=== PATIENT | female | born 1970 | race Caucasian/White ===

== ENCOUNTER → 2017-05-03 | Day surgery (SDC) | payer OTHER ==
[~2017-05-03] MED LIST: HYDR-3133 PO; LACTATED RINGER'S 1000 ML INJ 1,000 ML ONE; MEDR4PAK PO; PROPOFOL 500 MG/50 ML BTL IV ONE
== END | disposition home or self-care (01) ==
LOC: ESDC 08:36
PROVIDERS: ATTEND Internal Medicine Gastroenterology
DX: R12 Heartburn (principal); K20.9 Esophagitis, unspecified; K31.9 Disease of stomach and duodenum, unspecified; R10.9 Unspecified abdominal pain; K57.90 Diverticulosis of intestine, part unspecified, without perforation or abscess without bleeding; K64.8 Other hemorrhoids
CPT/HCPCS: 00813; 43239; 45378; 88305; J3010; J7120; 88312

== ENCOUNTER → 2017-06-03 | Outpatient (CLI) | payer OTHER ==
[~2017-06-03] MED LIST changes: +ALBUAER3 INH; -LACTATED RINGER'S 1000 ML INJ 1,000 ML ONE; +PANT40TA3 PO; -PROPOFOL 500 MG/50 ML BTL IV ONE; +TRAM50TA PO
[2017-06-03 12:32] LABS: AUTOMATED NEUTROPHIL # 4.3 TH/MM3 (1.8-7.7); BASOPHIL % 0.1 % (0.0-2.0); EOSINOPHIL % 0.2 % (0.0-4.0); HEMOGLOBIN 10.7 GM/DL (11.6-15.3); LYMPH % 21.5 % (9.0-44.0); LYMPHOCYTE # 1.3 TH/MM3 (1.0-4.8); MEAN CELL VOLUME 77.9 FL (80.0-100.0); MEAN CORPUSCULAR HEMOGLOBIN 25.2 PG (27.0-34.0); MEAN CORPUSCULAR HGB CONC 32.4 % (32.0-36.0); MEAN PLATELET VOLUME 6.5 FL (7.0-11.0); MONO % 8.4 % (0.0-8.0); MONOCYTE # 0.5 TH/MM3 (0-0.9); NEUT % 69.8 % (16.0-70.0); PLATELET COUNT 365 TH/MM3 (150-450); RED BLOOD COUNT 4.24 MIL/MM3 (4.00-5.30); RED CELL DISTRIBUTION WIDTH 16.3 % (11.6-17.2); WHITE BLOOD COUNT 6.2 TH/MM3 (4.0-11.0)
[2017-06-03 12:42] LABS: INTERNATIONAL NORMALIZED RATIO 0.9 RATIO; PROTHROMBIN TIME - PATIENT 9.5 SEC (9.8-11.6)
[2017-06-03 12:56] LABS: ALBUMIN 3.6 GM/DL (3.4-5.0); AST (GOT) 40 U/L (15-37); BICARBONATE 23.4 MEQ/L (21.0-32.0); BLOOD UREA NITROGEN 9 MG/DL (7-18); CALCIUM 8.7 MG/DL (8.5-10.1); CHLORIDE 105 MEQ/L (98-107); CREATININE 0.82 MG/DL (0.50-1.00); GLOMERULAR FILTRATION RATE 75 ML/MIN (>89); GLUCOSE,FASTING 106 MG/DL (74-99); SODIUM (NA) 137 MEQ/L (136-145)
[2017-06-03 13:01] LABS: ALKALINE PHOSPHATASE 92 U/L (45-117); ALT (GPT) 44 U/L (10-53); TOTAL BILIRUBIN ADULT 0.3 MG/DL (0.2-1.0); TOTAL PROTEIN 7.9 GM/DL (6.4-8.2)
--- NOTE | 2017-06-04 11:16 | EKG ---
Date Performed: 06/03/2017 Time Performed: 11:58:40 PTAGE: 47 years EKG: Sinus rhythm LOW QRS VOLTAGE IN PRECORDIAL LEADS POSSIBLE ANTERIOR MYOCARDIAL INFARCTION, PROBABLY OLD BORDERLINE ECG NO PREVIOUS TRACING DOCTOR: Kwadwo Feliz Interpretating Date/Time 06/04/2017 11:12:39
== END ==
LOC: CPRE 11:42
PROVIDERS: ATTEND Obstetrics & Gynecology Gynecologic Oncology
DX: Z01.812 Encounter for preprocedural laboratory examination (principal); Z01.810 Encounter for preprocedural cardiovascular examination; C53.9 Malignant neoplasm of cervix uteri, unspecified; R94.31 Abnormal electrocardiogram [ECG] [EKG]
CPT/HCPCS: 36415; 80053; 84703; 85025; 85610; 85730; 93005

== ENCOUNTER → 2017-06-10 | Day surgery (SDC) | payer OTHER ==
[~2017-06-10] VITALS: Ht 157.5 cm; Wt 115.8 kg
[~2017-06-10] MED LIST changes: +CHLORHEXIDINE GLUCONATE 2 % 1 PACK (2 CLOTHS) TOPICAL PRN; +DEXAMETHASONE SOD PHOS 4 MG/ML VIAL IV ONE; +DO NOT ADM ANY ANTICOAGULANT DRUGS PRN; +FERRIC SUBSULFATE 8 ML TOP SOLN TOPICAL ONE; -HYDR-3133 PO; +KETOROLAC TROMETHAMINE 30 MG/ML (IVP) VIAL IV PUSH PRN; +LACTATED RINGER'S 1000 ML IV PRN; +LIDOCAINE 1%/EPINEPHrine 1:100,000 SOLN 30 ML VIAL ONE; +LIDOCAINE HCL 1% PF 5 ML SYRINGE OTHER ONE; -MEDR4PAK PO; +METOPROLOL TARTRATE 25 MG TAB PO PRN; +MIDAZOLAM HCL 2 MG/2 ML VIAL ONE; +ONDANSETRON HCL 4 MG/2 ML VIAL IV ONE; +POVIDONE IODINE 5% (ANTISEPSIS KIT) 4 APPLICATIONS EACH NARE PRN; +PROPOFOL 200 MG/20 ML AMP IV ONE; +ROCURONIUM INJ 50 MG/5 ML SYRINGE IV PUSH ONE; +SODIUM CHLORID 0.9% 500 ML IV PRN; +SUGAMMADEX SODIUM 200 MG/2 ML VIAL IV PUSH ONE
--- NOTE | 2017-06-10 13:27 | MP ---
cc: Kimber Frey MD,Mariely Roque MD, Ryan DATE OF OPERATION: 06/10/2017 DATE OF PROCEDURE: 06/10/2017 PREOPERATIVE DIAGNOSIS: Squamous cell carcinoma of the cervix. 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 PROCEDURE PERFORMED: Examination under anesthesia, upper vaginal biopsies, cystoscopy with bladder biopsy. ESTIMATED BLOOD LOSS: 40 mL. SURGEON: Kimber Frey MD CERAMICS TEST ENGINEER: Adam parts room assistant. ANESTHESIA: Laryngeal mask anesthesia. INDICATIONS FOR PROCEDURE: This is a 47-year-old female who has had bleeding and pain for at least a year's duration, possibly longer and recently sought evaluation that included a GI workup, upper and lower and a DRIVER GUARD workup that showed a mass on the cervix. The mass on the cervix was biopsied. Biopsy confirmed an invasive squamous cell carcinoma. She was seen in consultation in our office, where findings were reviewed. We recommended steps to obtain additional information. We recommended a PET CT scan as well as an examination under anesthesia, possible additional biopsies and cystoscopy. She is seen again in the preoperative holding area. She is accompanied by a close friend, who is a registered nurse. We reviewed again the findings, the recommendations and the plan of care. She expressed good understanding and agreed to move forward. FINDINGS: On exam under anesthesia, there is no appreciably enlarged inguinal lymph nodes. External genitalia without mass or lesion. Distal vagina is normal. The cervix, however, is abnormal. It is replaced with tumor. There is an obvious exophytic tumor mass approximately 2-3 cm from the 12 o'clock to 3 o'clock position on the left. There was also another tumor on the lateral most edge of the cervix, most noted there at the 7 o'clock position, but there is firm infiltrative tumor that essentially replacing the entire cervix. The tumor extends to the upper vagina, essentially circumferentially around the cervix. On rectovaginal exam, there is obvious parametrial infiltration bilaterally. The cervix was retracted toward the upper vagina bilaterally due to the upper vaginal and parametrial disease and i following carefully with palpation to the pelvic sidewall, the parametrial tumor thins out, but I cannot detect an obvious tumor free space between the tumor and the pelvic sidewalls on either side, such that I think that there is early sidewall infiltration of tumor. She has had a recent GI workup, so proctoscopy was not performed. Cystoscopy done today showed the bladder mucosa appeared normal, but there was some very fine irritation and/or bullous edema in the trigone. It did not appear neoplastic. It looked to be more like chronic inflammation or irritation. Nevertheless, a biopsy was taken from the center of this hardware supplies sales representative to ensure there was no neoplastic change. The ureteral ostia were well visualized bilaterally. There was good efflux of urine bilaterally. Overall, these findings are consistent with a clinical stage IIIB invasive squamous cell carcinoma of the cervix. Biopsy frozen section from the right upper vagina confirmed invasive squamous cell carcinoma consistent with outside biopsy as well as our clinical findings. However, it is noted that on 06/02/2017, she had a PET CT scan as recommended and this shows PET avid adenopathy in the iliac regions bilaterally, as well as the paraaortic region so this will be taken into account and whereas she is a clinical stage IIIB, there is radiographic evidence suggestive of metastatic disease to the pelvic and paraaortic lymph nodes. DESCRIPTION OF PROCEDURE: She was taken to the operating room and placed in dorsal lithotomy position and after laryngeal mask anesthesia was administered, timeout was undertaken. She was identified by site recognition and hospital ID bracelet and the proposed procedure was reviewed and confirmed. She was carefully positioned in stirrups. Exam under anesthesia was performed with findings as described above. She was prepped and draped in sterile fashion. Speculum exam was performed. Biopsies were taken from the right upper vagina and left upper vagina and a Ray-Chadd sponge was placed in the vagina for hemostasis. Cystoscopy was performed using a 70-degree scope with findings as described above. A biopsy of the trigone of the bladder was obtained with a flexible biopsy instrument, rendered hemostatic with Bugbee cautery. The bladder was drained. Intraoperative consultation with Dr. Gagan Akins, radiation oncology. He was available at this time and he came into the operating room. The Ray-Chadd sponge that was in the vagina was removed. He performed an exam under anesthesia and concurred with clinical findings and clinical staging as described above. There were no remaining foreign objects in the vagina. Topical Monsel's solution was used to render the biopsy sites initially hemostatic and then Surgicel SNoW was placed with a pressure dressing and a hemostatic agent across the cervix and the biopsy sites as well. Reobservation confirmed that all sites were hemostatic. Preliminary and final counts were correct. She was returned to dorsal supine position and was pending reversal of anesthesia when I left the operating room to precede her to the postanesthesia care unit. MD BHARATI Ferguson/NORM , 12:50 PM , 01:26 PM
[2017-06-10 14:05] VITALS: BP 121/73; PULSE 102; RESP 20; TEMP 98.5; O2SAT 98
== END | disposition home or self-care (01) ==
LOC: HSDC 08:04
PROVIDERS: ATTEND Obstetrics & Gynecology Gynecologic Oncology
DX: C79.82 Secondary malignant neoplasm of genital organs (principal); C53.9 Malignant neoplasm of cervix uteri, unspecified; N30.90 Cystitis, unspecified without hematuria; I10 Essential (primary) hypertension; J45.909 Unspecified asthma, uncomplicated
CPT/HCPCS: 00940; 52204; 57100; 86850; 86900; 86901; 88305; 88307; 88331; J1100; J2250; J2405; J3010; J7120

== ENCOUNTER 2017-06-18 07:14 | Day surgery (SDC) | payer OTHER ==
[~2017-06-18] VITALS: Ht 157.5 cm; Wt 113.6 kg
[2017-06-18] VITALS (7 sets, daily range): BP systolic 116–129; BP diastolic 69–76; PULSE 76–89; RESP 16–18; TEMP 97.3–98; O2SAT 98–99
[~2017-06-18 07:14] MED LIST changes: -CHLORHEXIDINE GLUCONATE 2 % 1 PACK (2 CLOTHS) TOPICAL PRN; -DEXAMETHASONE SOD PHOS 4 MG/ML VIAL IV ONE; -DO NOT ADM ANY ANTICOAGULANT DRUGS PRN; -FERRIC SUBSULFATE 8 ML TOP SOLN TOPICAL ONE; -KETOROLAC TROMETHAMINE 30 MG/ML (IVP) VIAL IV PUSH PRN; -LACTATED RINGER'S 1000 ML IV PRN; -LIDOCAINE 1%/EPINEPHrine 1:100,000 SOLN 30 ML VIAL ONE; -LIDOCAINE HCL 1% PF 5 ML SYRINGE OTHER ONE; -METOPROLOL TARTRATE 25 MG TAB PO PRN; -MIDAZOLAM HCL 2 MG/2 ML VIAL ONE; -ONDANSETRON HCL 4 MG/2 ML VIAL IV ONE; -POVIDONE IODINE 5% (ANTISEPSIS KIT) 4 APPLICATIONS EACH NARE PRN; -PROPOFOL 200 MG/20 ML AMP IV ONE; -ROCURONIUM INJ 50 MG/5 ML SYRINGE IV PUSH ONE; -SODIUM CHLORID 0.9% 500 ML IV PRN; -SUGAMMADEX SODIUM 200 MG/2 ML VIAL IV PUSH ONE
[2017-06-18] MEDS ORDERED: POVIDONE IODINE 5% (ANTISEPSIS KIT) 4 APPLICATIONS EACH NARE SCH (08:00)
[2017-06-18] MEDS ORDERED: SODIUM CHLORIDE 0.9% 1000 ML IV SCH (08:00)
[2017-06-18] MEDS ORDERED: CHLORHEXIDINE GLUCONATE 2 % 1 PACK (2 CLOTHS) TOPICAL SCH (08:00)
[2017-06-18] MEDS ORDERED: VANCOMYCIN 1000 MG/NS 250 ML - implanted port/tunneled catheter IV SCH ×2 (08:00)
[2017-06-18] MEDS ORDERED: ceFAZolin 2 GM PREMIX 50 ML - implanted port/tunneled catheter insertion IV SCH (08:00)
[2017-06-18 08:20] LABS: INTERNATIONAL NORMALIZED RATIO 0.9 RATIO; PROTHROMBIN TIME - PATIENT 9.5 SEC (9.8-11.6)
[2017-06-18 08:21] LABS: AUTOMATED NEUTROPHIL # 3.1 TH/MM3 (1.8-7.7); BASOPHIL % 0.1 % (0.0-2.0); EOSINOPHIL % 0.2 % (0.0-4.0); HEMATOCRIT 32.7 % (35.0-46.0); HEMOGLOBIN 10.6 GM/DL (11.6-15.3); LYMPH % 23.4 % (9.0-44.0); LYMPHOCYTE # 1.1 TH/MM3 (1.0-4.8); MEAN CELL VOLUME 76.5 FL (80.0-100.0); MEAN CORPUSCULAR HEMOGLOBIN 24.9 PG (27.0-34.0); MEAN CORPUSCULAR HGB CONC 32.5 % (32.0-36.0); MEAN PLATELET VOLUME 6.4 FL (7.0-11.0); MONO % 9.4 % (0.0-8.0); MONOCYTE # 0.4 TH/MM3 (0-0.9); NEUT % 66.9 % (16.0-70.0); PLATELET COUNT 285 TH/MM3 (150-450); RED BLOOD COUNT 4.27 MIL/MM3 (4.00-5.30); RED CELL DISTRIBUTION WIDTH 16.5 % (11.6-17.2); WHITE BLOOD COUNT 4.6 TH/MM3 (4.0-11.0)
[2017-06-18] MEDS ORDERED: MIDAZOLAM HCL 5 MG/5 ML VIAL ONE (09:17)
[2017-06-18] MEDS ORDERED: fentaNYL CITRATE 250 MCG/5 ML AMP ONE (09:17)
[2017-06-18] MEDS ORDERED: LIDOCAINE 1%/EPINEPHrine 1:100,000 SOLN 30 ML VIAL ONE (09:25)
[2017-06-18] MEDS ORDERED: MIDAZOLAM HCL 2 MG/2 ML VIAL ONE (10:31)
[2017-06-18] MEDS ORDERED: SODIUM CHLORIDE 0.9% FLUSH 10 ML FLUSH IVF PRN (11:00)
--- NOTE | 2017-06-18 11:01 | PD.RAD ---
Post Procedure Progress Note Pre Procedure Diagnosis: (1) Cervical cancer Post Procedure Diagnosis: (1) Cervical cancer Procedure Date: Jun 18, 2017 Supervising Radiologist: Felipe De Dios Proceduralist/Assist: Lizabeth Lester, RT(R), Rodney Hall, RT(R) Anesthesia: Local, Analgesia, Conscious Sedation Plan of Activity Patient to Unit: ROPU Patient Condition: Good See PACS Report for procedural detail/treatment Central Venous Access Device Procedure 1 Right Internal Jugular Infusaport Placement single lumen Romansh: 8 Findings: B/C of body habitus, port placed medial to reduce amt of overlying soft tissue. Port secured to chest wall with 2, 2-0 Prolene sutures. Felipe De Dios MD Jun 18, 2017 11:01
[2017-06-18] MEDS ORDERED: oxyCODONE/ACETAMINOPHEN 5 MG/325 MG TAB PO ONE (11:45)
--- NOTE | 2017-06-18 11:45 | RADRPT ---
EXAM DATE/TIME: 06/18/2017 10:45 [facility] COMPARISON: No previous studies available for comparison. INDICATIONS : Patient presents with cervical cancer in need of port placement for treatment. MEDICAL HISTORY : Asthma Diverticulosis Diverticulitis Pneumonia Anemia Ovarian cysts SURGICAL HISTORY : Cholecystectomy Tubal ligation ENCOUNTER: Initial ACUITY: 1 month PAIN SCORE: 0/10 LOCATION: N/A FLUORO TIME: 0.67 minutes IMAGE SERIES: 1 SEDATION TIME: 60 minutes ACCESS: Right internal jugular vein SEDATION: 1.) 6 mg midazolam (Versed) IV 2.) 300 mcg fentanyl (Sublimaze) IV Prophylactic antibiotics were administered with appropriate pre-procedure timing. Vancomycin within 2 hours of procedure, Ancef (or alternative) within 1 hour of procedure. DEVICE: 1. 8 [place] single lumen BioFlo Port PROCEDURE : 1. Continuous pulse oximetry and EKG monitoring. 2. Intravenous conscious sedation. 3. Ultrasound guidance for venous access. 4. Fluoroscopic guided implantable central venous port placement. The patient was placed supine. The neck was prepped in sterile fashion. Full sterile technique was u sed, including cap, mask, sterile gloves and gown, and a large sterile sheet. Hand hygiene and 2% ch lorhexidine Betadine was utilized per protocol for cutaneous antisepsis with appropriate dry time for site. Sterile gel and sterile probe cover were utilized for ultrasound guidance. The skin and sub cutaneous tissues were infiltrated with local anesthetic solution. Under direct ultrasound guidance, central venous access was accomplished in the targeted vessel. The ultrasound images depicting access guidance were stored and saved to PACS for permanent record. A s ubcutaneous pocket was created using blunt dissection. Because of the patient's body habitus and redundant tissues, two anchoring, 2-0 Prolene sutures were placed in the chest wall to secure the port reservoir. The port was introduced to the pocket. The catheter tubing was fed through a subcutaneous tunnel to the venotomy site. The catheter tubing was cut to a suitable length and then was introduced through a valved Peel-Away sheath and positioned with catheter tubing tip at the cavo-atrial junction level. The pocket incision was closed with subcuticular Vicryl suture. Steri-Strips were applied. The por t was flushed and locked with heparin solution per protocol. Sterile dressing was applied to the sit e. The patient tolerated the procedure well. Conscious sedation was performed with the prescribed dosages and duration as above in the presence of an independent trained radiology nurse to assist in the monitoring of the patient. EKG and oximetry remained stable throughout the procedure. The patient tolerated the procedure well and there were no complications. The patient was sent to post anesthesia recovery in stable condition. CONCLUSION: Uncomplicated ultrasound and fluoroscopic guided implanted central venous port catheter placement as described in detail above. An 8 [place] Power port was placed. Port was secured to the chest wall with 2, 2-0 Prolene ligature. Felipe De Dios MD on June 18, 2017 at 11:41 Board Certified Radiologist. This report was verified electronically.
== END 2017-06-18 13:00 | disposition home or self-care (01) ==
LOC: HRIP 07:14 → HROP 07:14
PROVIDERS: ATTEND Obstetrics & Gynecology Gynecologic Oncology
DX: C53.9 Malignant neoplasm of cervix uteri, unspecified (principal); J45.909 Unspecified asthma, uncomplicated; N83.209 Unspecified ovarian cyst, unspecified side; K57.92 Diverticulitis of intestine, part unspecified, without perforation or abscess without bleeding; D64.9 Anemia, unspecified
CPT/HCPCS: 36561; 76937; 77001; 85025; 85610; 85730; 99152; 99153; C1788; J0690; J1642; J2250; J3010; J3370; J7030; J7050